=== PATIENT | female | born 1985 | race Two or more races ===

== ENCOUNTER 2021-03-20 13:56 | Outpatient (CLI) | payer OTHER | END 2021-03-20 15:44 | disposition home or self-care (01) | LOC: OFIC 805 13:56 | PROVIDERS: ATTEND Otolaryngology Otology & Neurotology | DX: H92.03 Otalgia, bilateral (principal); H61.23 Impacted cerumen, bilateral ==

== ENCOUNTER → 2021-04-12 | Outpatient (CLI) | payer OTHER | END | disposition home or self-care (01) | LOC: NST 16:00 | PROVIDERS: ATTEND Obstetrics & Gynecology Maternal & Fetal Medicine | DX: Z34.83 Encounter for supervision of other normal pregnancy, third trimester (principal) ==

== ENCOUNTER 2021-05-03 15:15 | Inpatient (IN) | payer OTHER ==
[~2021-05-03] VITALS: Ht 152.4 cm; Wt 50.8 kg
[2021-05-09] MEDS ORDERED: PRENATAL CAPLE1 EAC1 PO (06:23)
[2021-05-09] MEDS ORDERED: VALTREX1000 MG PO (06:23)
== END 2021-05-11 11:55 | disposition home or self-care (01) | DRG 807 ==
LOC: SURG-SUITE 05-09 06:24 → LDR 05-09 06:24 → SURG-SUITE 05-09 16:05 → LDR 05-24 15:15
PROVIDERS: ADMIT Obstetrics & Gynecology; ATTEND Obstetrics & Gynecology
PROC: 10E0XZZ Delivery of Products of Conception, External Approach (ICD-10-PCS; principal; 2021-05-09)
PROC: 0HQ9XZZ Repair Perineum Skin, External Approach (ICD-10-PCS; 2021-05-09)
PROC: 10907ZC Drainage of Amniotic Fluid, Therapeutic from Products of Conception, Via Natural or Artificial Opening (ICD-10-PCS; 2021-05-09)
PROC: 3E033VJ Introduction of Other Hormone into Peripheral Vein, Percutaneous Approach (ICD-10-PCS; 2021-05-09)
PROC: 4A1HXFZ Monitoring of Products of Conception, Cardiac Rhythm, External Approach (ICD-10-PCS; 2021-05-09)
DX: O36.5930 Maternal care for other known or suspected poor fetal growth, third trimester, not applicable or unspecified (principal); O70.0 First degree perineal laceration during delivery; Z37.0 Single live birth; Z3A.37 37 weeks gestation of pregnancy; Z20.822 Contact with and (suspected) exposure to COVID-19

== ENCOUNTER 2021-05-08 09:29 | Outpatient (CLI) | payer OTHER ==
[2021-05-09] MEDS ORDERED: VALTREX1000 MG PO (06:23)
[2021-05-09] MEDS ORDERED: PRENATAL CAPLE1 EAC1 PO (06:23)
== END 2021-05-08 10:28 | disposition home or self-care (01) ==
LOC: NST 09:29
PROVIDERS: ATTEND Obstetrics & Gynecology
DX: Z34.83 Encounter for supervision of other normal pregnancy, third trimester (principal)

== ENCOUNTER → 2022-11-07 | Outpatient (CLI) | payer OTHER ==
[~2022-11-07] MED LIST: PRENATAL CAPLE1 EAC1 PO; VALTREX1000 MG PO
== END | disposition home or self-care (01) ==
LOC: NST 15:29
PROVIDERS: ATTEND Obstetrics & Gynecology Gynecology
DX: Z34.83 Encounter for supervision of other normal pregnancy, third trimester (principal)

== ENCOUNTER 2022-11-29 08:01 | Outpatient (CLI) | payer OTHER | END 2022-11-29 09:12 | disposition home or self-care (01) | LOC: NST 08:01 | PROVIDERS: ATTEND Obstetrics & Gynecology Maternal & Fetal Medicine | DX: Z34.83 Encounter for supervision of other normal pregnancy, third trimester (principal) ==

== ENCOUNTER 2022-12-02 14:00 | Inpatient (IN) | payer OTHER ==
[~2022-12-02] VITALS: Ht 61 cm; Wt 50.3 kg
== END 2022-12-05 15:46 | disposition home or self-care (01) | DRG 807 ==
LOC: LDR 12-04 05:39 → OB/GYN 12-04 11:59
PROVIDERS: ADMIT Obstetrics & Gynecology Maternal & Fetal Medicine; ATTEND Obstetrics & Gynecology Maternal & Fetal Medicine
PROC: 10E0XZZ Delivery of Products of Conception, External Approach (ICD-10-PCS; principal; 2022-12-04)
PROC: 0HQ9XZZ Repair Perineum Skin, External Approach (ICD-10-PCS; 2022-12-04)
PROC: 0HQ9XZZ Repair Perineum Skin, External Approach (ICD-10-PCS; 2022-12-04)
DX: O70.0 First degree perineal laceration during delivery (principal); Z37.0 Single live birth; Z3A.39 39 weeks gestation of pregnancy; Z20.822 Contact with and (suspected) exposure to COVID-19

== ENCOUNTER 2024-04-13 14:00 | Inpatient (IN) | payer OTHER ==
[~2024-04-13] VITALS: Ht 152.4 cm; Wt 52.6 kg
[2024-04-21 11:17] LABS: HEMATOCRIT 38.1 % (36.0-45.00); HEMOGLOBIN 13.4 g/dL (12.0-15.00); MEAN CORPUSCULAR HEMOGLOBIN 32.3 pg (27.00-32.0); MEAN CORPUSCULAR HGB CONC 35.1 g/dl (32.0-36.0); PLATELET COUNT 215 K/uL (150-450); RED BLOOD COUNT 4.14 M/uL (4.00-6.00); RED CELL DISTRIBUTION WIDTH 13.4 % (11.5-14.5)
[2024-04-21] MEDS ORDERED: VALTREX1000 MG PO (11:30)
[2024-04-21 11:46] LABS: ALBUMIN 3.5 gm/dL (3.4-5.0); BILIRUBIN TOTAL 0.5 mg/dL (0.3-1.2); CALCIUM 9.2 mg/dL (8.5-10.1); CREATININE SERUM 0.7 mg/dL (0.55-1.02); GFR 94.68; GLOBULINA 3.9 G/DL (2.4-3.5); POTASSIUM 3.59 mEq/L (3.5-5.1); TOTAL PROTEIN 7.4 gm/dL (6.4-8.2)
[2024-04-21 12:05] LABS: INR < 0.93; PARTIAL THROMBOPLASTIN TIME 25.6 SECONDS (22.0-34.0); PROTHROMBIN TIME 9.8 SECONDS (9.0-11.5)
[2024-04-21] MEDS ORDERED: OXYTOCIN 500 ML IV SCH (12:15)
[2024-04-21] MEDS ORDERED: IBUprofen 400 MG TABLET PO PRN (14:00)
[2024-04-21] MEDS ORDERED: OXYTOCIN 1,000 ML IV SCH (14:00)
[2024-04-21] MEDS ORDERED: OxyCODONE HCL/APAP UD (PERCOCET) PO PRN (14:00)
[2024-04-21] MEDS ORDERED: CHLORHEXIDINE GLUCONATE 120 ML BOTTLE TOP ONE (14:30)
[2024-04-21] MEDS ORDERED: ERYTHROMYCIN BASE 1 GM TUBE OP ONE (14:30)
== END 2024-04-22 15:24 | disposition home or self-care (01) | DRG 807 ==
LOC: OB/GYN 04-21 10:09 → LDR 04-21 10:09 → OB/GYN 04-21 14:56
PROVIDERS: ADMIT Obstetrics & Gynecology; ATTEND Obstetrics & Gynecology
PROC: 10E0XZZ Delivery of Products of Conception, External Approach (ICD-10-PCS; principal; 2024-04-21)
PROC: 4A1HXCZ Monitoring of Products of Conception, Cardiac Rate, External Approach (ICD-10-PCS; 2024-04-21)
DX: O80 Encounter for full-term uncomplicated delivery (principal); Z37.0 Single live birth; Z3A.38 38 weeks gestation of pregnancy; Z20.822 Contact with and (suspected) exposure to COVID-19

== ENCOUNTER 2024-04-20 09:28 | Outpatient (CLI) | payer OTHER ==
[2024-04-21] MEDS ORDERED: VALTREX1000 MG PO (11:30)
== END 2024-04-20 10:14 | disposition home or self-care (01) ==
LOC: NST 09:28
PROVIDERS: ATTEND Obstetrics & Gynecology
DX: Z34.83 Encounter for supervision of other normal pregnancy, third trimester (principal)